=== PATIENT | male | born 2000 | race Hispanic/Latino ===

== ENCOUNTER 2019-04-27 12:21 | Emergency (ER) | payer SELFPAY ==
[~2019-04-27] VITALS: Ht 177.8 cm; Wt 96.2 kg
[2019-04-27] MEDS ORDERED: IBUPROFEN 200 MG TAB PO STA (12:39)
[2019-04-27] MEDS ORDERED: TETANUS/DIPHTHERIA TOX ADULT 0.5 ML SYR IM STA (12:39)
[2019-04-27] MEDS ORDERED: MUPIROCIN 2% OINT 22 GM TUBE TOP ONE (12:45)
[2019-04-27] MEDS ORDERED: IBUPROFEN 400 MG TAB ONE (12:58)
[2019-04-27] MEDS ORDERED: ACETAMINOPHEN 325 MG TAB PO NR (13:00)
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
== END 2019-04-27 14:31 | disposition home or self-care (01) ==
LOC: ER 12:21
DX: S60.812A Abrasion of left wrist, initial encounter (principal); S80.212A Abrasion, left knee, initial encounter; S80.02XA Contusion of left knee, initial encounter; S60.212A Contusion of left wrist, initial encounter; V43.62XA Car passenger injured in collision with other type car in traffic accident, initial encounter; Y92.414 Local residential or business street as the place of occurrence of the external cause; Z23 Encounter for immunization
CPT/HCPCS: 90471; 90714; 99284